=== PATIENT | male | born 1950 | race Caucasian/White ===

== ENCOUNTER 2019-12-08 13:24 | Emergency (ER) | payer MEDICARE ==
[2019-12-08] MEDS ORDERED: Ondansetron ODT 4 MG TAB ONE (13:56)
[2019-12-08] MEDS ORDERED: Morphine 10 MG/ML VIAL ONE (13:56)
[2019-12-08 14:23] LABS: ALT (SGPT) 16 U/L (8-55); AST (SGOT) 17 U/L (5-34); Albumin 4.2 g/dL (3.4-4.8); Alkaline Phosphatase 51 U/L (40-110); Anion Gap 17 mmol/L (10-20); BUN (Urea Nitrogen) 21 mg/dL (8.4-25.7); Bilirubin, Total 0.3 mg/dL (0.2-1.2); Calc. Creatinine Clearance 0 mL/min (70-130); Calcium 8.7 mg/dL (7.8-10.44); Carbon Dioxide 24 mmol/L (23-31); Chloride 106 mmol/L (98-107); Estimated GFR-MDRD 57; Globulin 3.1 g/dL (2.4-3.5); Glucose 135 mg/dL (83-110); Lipase 20 U/L (8-78); Potassium 4.6 mmol/L (3.5-5.1); Protein, Total 7.3 g/dL (5.8-8.1); Sodium 142 mmol/L (136-145)
[2019-12-08 14:25] LABS: Bilirubin Small (Negative); Blood, Urine Large (Negative); Glucose, Urine (Dipstick) Negative (Negative); Ketone, Urine 40 mg/dL (Negative); Leukocyte Negative (Negative); Nitrite Negative (Negative); Protein, Urine (Dipstick) 30 mg/dL (Neg-Trace); Urobilinogen 0.2 mg/dL (Less than 2); pH, Urine 5.5 (5.0-9.0)
[2019-12-08 14:25] LABS: #Basophils 0.1 thou/uL (0.0-0.2); #Eosinphils 0.1 thou/uL (0.0-0.7); #Lymphocytes 0.6 thou/uL (1.20-3.40); #Monocytes 0.3 thou/uL (0.11-0.59); #Neutrophils 9.4 thou/uL (1.40-6.50); %Basophils 1.1 % (0.0-1.0); %Eosinophils 0.7 % (0.0-10.0); %Lymphocytes 5.8 % (21.0-51.0); %Monocytes 3.3 % (0.0-10.0); %Neutrophils 89.1 % (42.0-75.0); Anisocytosis SLIGHT = 6-15 cells (100X) (0-5/hpf); Hemoglobin 12.1 g/dL (14.0-18.0); Hypochromia SLIGHT = 6-15 cells (100X) (0-5/hpf); MDiff Complete? YES; Mean Corpuscular HGB CONC 30.4 g/dL (32.0-36.0); Mean Corpuscular Hemoglobin 24.3 pg (27.0-31.0); Mean Platelet Volume 6.5 fL (7.4-10.4); Platelet Count 410 thou/uL (130-400); Platelet Morphology Comment Appears Increased; RBC Distribution Width 14.2 % (11.5-14.5); Red Blood Cell (RBC) Count 4.97 mill/uL (4.70-6.10); White Blood Cell (WBC) Count 10.5 thou/uL (4.8-10.8)
--- NOTE | 2019-12-08 14:28 | CT ---
CT Abdomen Pelvis WO Con 12/08/2019 2:14 PM HISTORY: Flank pain. COMPARISON: None. Technique: Multiple contiguous axial CT images are obtained through the abdomen and pelvis without IV contrast. Coronal reformats are provided. FINDINGS: This examination is limited for the evaluation of solid organs and vascular structures due to the lac k of intravenous contrast. Lower Chest: Minimal atelectasis present at the left lung base. There is partial visualization of a m oderate-sized hiatal hernia. Abdomen: Liver: Scattered hypodense lesions are seen within the right and left hepatic lobes with largest lesi on in the posterior segment posterior aspect right hepatic lobe measuring 1.6 cm. These hypodense lesions are difficult to characterize on this nonenhanced CT exam, but attenuation coefficients of th burt hypodense lesions are suggestive of hepatic cysts. Cystic metastatic lesions would be difficult to entirely exclude. Gallbladder: Within normal limits for CT imaging. Pancreas: Grossly normal nonenhanced CT appearance. Spleen: Grossly normal nonenhanced CT appearance. Adrenals: Grossly normal nonenhanced CT appearance. Kidneys: Lobulated contour of each kidney. Mild right hydronephrosis is present. No renal calculus is seen bilaterally. There is no left hydronephrosis. Ureters: Mild right hydroureter with a 4 mm calculus in the distal right ureter. Minimal periureteral stranding is seen. No left ureteral calculus is seen.. Pelvis: Urinary bladder: Incompletely decompressed and not well evaluated on this exam. Reproductive Organs: No pelvic masses. Lymph Nodes: No enlarged lymph nodes. Bowel: Colonic diverticulosis seen diffusely throughout the colon greatest in the region of the sigmo id colon. Loops of small bowel are normal in caliber. Appendix: The appendix is normal in caliber. Peritoneum: No free fluid, free air, or fluid collection. Retroperitoneum: within normal limits. Vessels: Vascular calcifications in the abdominal aorta.. Abdominal Wall: There is a fat-containing right inguinal canal. Surgical clips are seen in the more i nferior aspect of each inguinal canal which could be related to prior vasectomy. Bones: Circumscribed cystic lesion right femoral head neck junction which has the appearance of a sma ll cyst. Mild degenerative changes are seen in the spine. IMPRESSION: 1. Partially obstructing distal right ureteral calculus measuring 4 mm. 2. Moderate-sized hiatal hernia. 3. Scattered hypodense lesions within each lobe the liver which are difficult to characterize but sta tistically likely represent multiple hepatic cysts. Cystic metastatic lesions would be difficult to exclude given multiplicity. 4. Colonic diverticulosis. 5. Fat-containing right inguinal canal.
[2019-12-08 14:33] LABS: Clarity Hazy (Clear); Specific Gravity, Urine 1.028 (1.002-1.036)
[2019-12-08 14:34] LABS: Bacteria/HPF Rare-Few HPF (None Seen); Squamous Epithelial 0-3 HPF (0-3); WBC/HPF 0-3 HPF (0-3)
[2019-12-08] MEDS ORDERED: Ketorolac Tromethamine 30 MG/ML VIAL ONE (15:05)
[2019-12-08] MEDS ORDERED: Morphine 4 MG/ML VIAL ONE (15:05)
== END 2019-12-08 15:47 | disposition home or self-care (01) ==
LOC: MADERS 13:24
DX: N13.2 Hydronephrosis with renal and ureteral calculous obstruction (principal); I10 Essential (primary) hypertension; Z86.73 Personal history of transient ischemic attack (TIA), and cerebral infarction without residual deficits
CPT/HCPCS: 36415; 74176; 80053; 81003; 81015; 83605; 83690; 85025; 96372; J1885; J2270; Q0162